=== PATIENT | male | born 1990 | race Caucasian/White ===

== ENCOUNTER 2021-03-10 10:01 | Emergency (ER) | payer OTHER ==
--- NOTE | 2021-03-10 10:53 | XRAY Report ---
PROCEDURE: Foot 3 View RT INDICATIONS: injury TECHNIQUE: 3 views of the foot were acquired. COMPARISON: None FINDINGS: Bones: No fractures or dislocations. No suspicious bony lesions. Soft tissues: No tibiotalar joint effusion. Achilles tendon appears normal. IMPRESSION: No fracture. No osseous lesion. If there are persistent symptoms or continued clinical concern for pa thology, then repeat plain film radiographs (7-10 days) or advanced imaging (CT, MR, bone scan) shoul d be considered for further evaluation. Reviewed by: Jasmin Schuster MD, PhD on 03/10/2021 10:52 AM PDT Approved by: Jasmin Schuster MD, PhD on 03/10/2021 10:52 AM PDT Station ID: [id number]
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
[2021-03-10 12:33] VITALS: BP 130/87
== END 2021-03-10 12:41 | disposition home or self-care (01) ==
LOC: ED 10:01
DX: S30.810A Abrasion of lower back and pelvis, initial encounter (principal); S80.212A Abrasion, left knee, initial encounter; S80.211A Abrasion, right knee, initial encounter; V28.0XXA Motorcycle driver injured in noncollision transport accident in nontraffic accident, initial encounter; Y99.0 Civilian activity done for income or pay; S90.31XA Contusion of right foot, initial encounter
CPT/HCPCS: 99283

== ENCOUNTER 2021-09-26 08:00 | Outpatient (CLI) | payer SELFPAY | END 2021-09-26 23:59 | LOC: LAB 08:00 | PROVIDERS: ATTEND Emergency Medicine | DX: U07.1 COVID-19 (principal) ==

== ENCOUNTER 2023-11-01 07:12 | Outpatient (CLI) | payer OTHER ==
[2023-11-01 14:40] LABS: BASOPHILS # (AUTO) 0.1 10^3/uL (0.0-0.1); EOSINOPHILS # (AUTO) 0.4 10^3/uL (0.0-0.7); EOSINOPHILS % (AUTO) 6.5 %; HCT - HEMATOCRIT 45.4 % (42.0-52.0); HGB - HEMOGLOBIN 14.9 g/dL (14.0-18.0); LYMPHOCYTES # (AUTO) 2.3 10^3/uL (1.5-3.5); LYMPHOCYTES % (AUTO) 37.6 %; MEAN CORPUSCULAR HEMOGLOBIN 28.9 pg (27.0-31.0); MEAN CORPUSCULAR HGB CONC 32.8 g/dL (32.0-36.0); MEAN PLATELET VOLUME 10.7 fL (7.4-11.4); MONOCYTES # (AUTO) 0.6 10^3/uL (0.0-1.0); MONOCYTES % (AUTO) 9.4 %; NEUTROPHILS # (AUTO) 2.8 10^3/uL (1.5-6.6); NEUTROPHILS % (AUTO) 45.3 %; PLT - PLATELET COUNT 277 10^3/uL (130-450); RED BLOOD COUNT 5.16 10^6/uL (4.70-6.10); RED CELL DISTRIBUTION WIDTH 12.8 % (12.0-15.0); WHITE BLOOD COUNT 6.2 x10^3/uL (4.8-10.8)
[2023-11-01 15:09] LABS: ALBUMIN 4.7 g/dL (3.2-5.5); ALBUMIN/GLOBULIN RATIO 1.9 (1.0-2.2); BILIRUBIN,TOTAL 0.7 mg/dL (0.2-1.0); CALCIUM 9.7 mg/dL (8.5-10.3); POTASSIUM 4.2 mmol/L (3.5-4.5); TOTAL PROTEIN 7.2 g/dL (6.4-8.9)
[2023-11-01 15:32] LABS: THYROID STIMULATING HORMONE 5.02 uIU/mL (0.34-5.60)
== END 2023-11-01 07:13 | disposition home or self-care (01) ==
LOC: LAB.S 07:12
PROVIDERS: ATTEND Physician Assistant Medical
DX: N52.9 Male erectile dysfunction, unspecified (principal); Z13.9 Encounter for screening, unspecified; R53.83 Other fatigue
CPT/HCPCS: 36415; 80053; 84403; 84443; 85025

== ENCOUNTER 2023-12-10 08:08 | Day surgery (SDC) | payer OTHER ==
[2023-12-10] MEDS: LACTATED RINGERS 1,000 ML IV ONE ×2 (08:24→09:45)
--- NOTE | 2023-12-10 08:47 | ANESTHESIA ---
Pre-Anesthesia VS, & Labs - Diagnosis sterilization - Procedure bilat vasectomy Vital Signs: Temp Pulse Resp BP Pulse Ox O2 Flow Rate 36.5 C 79 20 127/86 H 99 12/10/23 08:24 12/10/23 08:24 12/10/23 08:24 12/10/23 08:24 12/10/23 08:24 Height: 5 ft 7 in Weight (kg): 85.1 kg Body Mass Index: 29.3 BMI Classification: Overweight - NPO >8 hours - Lab Results Lab results reviewed: Yes Home Medications and Allergies Home Medications: Ambulatory Orders Lactobacillus Combination No.4 [Probiotic] 1 each PO DAILY 11/30/23 Loperamide [Imodium] 2 mg PO ONCE PRN 11/30/23 Multivitamin 1 each PO DAILY 11/30/23 Lactobacillus Combination No.4 [Probiotic] 1 each PO DAILY 11/30/23 Loperamide [Imodium] 2 mg PO ONCE PRN 11/30/23 Multivitamin 1 each PO DAILY 11/30/23 Allergies/Adverse Reactions: Allergies Allergy/AdvReac Type Severity Reaction Status Date / Time No Known Drug Allergies Allergy Verified 12/10/23 08:35 Anes History & Medical History - Anesthetic History Anesthesia Complications: reports: No previous complications Family history of Anesthesia Complications: Denies Family history of Malignant Hyperthermia: Denies - Medical History Cardiovascular: reports: None Pulmonary: reports: None Gastrointestinal: reports: Chronic diarrhea Urinary: reports: None Musculoskeletal: reports: None Endocrine/Autoimmune: reports: None Skin: reports: None Smoking Status: Never smoker Exam General: Alert, Oriented x3, Cooperative Dental: WNL (wire at bottom teeth) Mouth Openin Fingerbreadth Neck Mobility: Normal Mallampati classification: II Thyromental Distance: 4-6 cm Respiratory: Lungs clear, Normal breath sounds, No respiratory distress Cardiovascular: Regular rate Neurological: Normal speech Mental/Cognitive Status: Alert/Oriented X3, Normal for patient Cognitive Status: Within normal limits Plan Anesthesia Type: Total IV Consent for Procedure(s) Verified and Reviewed: Yes Code Status: Attempt Resuscitation ASA classification: 2-Mild systemic disease Is this case an emergency?: No
[2023-12-10] MEDS ORDERED: fentaNYL 100 MCG/2 ML VIAL IVP PRN (09:31)
[2023-12-10] MEDS ORDERED: MORPHINE 2 MG/ML CARPUJECT IVP PRN (09:31)
[2023-12-10] MEDS ORDERED: NALOXONE 0.4 MG/ML VIAL IVP PRN (09:31)
[2023-12-10] MEDS ORDERED: HYDROmorphone 0.5 MG/0.5 ML SYRINGE IVP PRN (09:31)
[2023-12-10] MEDS ORDERED: METOCLOPRAMIDE 10 MG/2 ML VIAL IVP PRN (09:31)
[2023-12-10] MEDS ORDERED: ePHEDrine 50 MG/ML VIAL IVP PRN (09:31)
[2023-12-10] MEDS ORDERED: ONDANSETRON 4 MG/2 ML VIAL IVP PRN (09:31)
[2023-12-10] MEDS ORDERED: ATROPINE ABBOJECT 1 MG/10 ML SYRINGE IVP PRN (09:31)
--- NOTE | 2023-12-10 09:53 | Discharge Plan ---
Discharge Plan Problem Reviewed?: Yes Disposition: 01 Home, Self Care Diet: Regular Activity Restrictions: Additional Comments (as instructed) Shower Restrictions: No Driving Restrictions: No Instruction Topics: Vasectomy No Scalpel No Smoking: If you smoke, Please STOP! Call for help.
--- NOTE | 2023-12-10 09:55 | OPERATIVE REPORT ---
Operative Report - General Procedure Date: 12/10/23 Planned Procedure: Bilateral vasectomy Pre-Op Diagnosis: Elective sterilization Procedure Performed: Bilateral no scalpel vasectomy Post Op Diagnosis: Elective sterilization - Procedure Note Primary Surgeon: Deny Anesthesia Provider: JOSÉ MIGUEL Gallegos Anesthesia Technique: General LMA Estimated Blood Loss (mL): 0 Findings: Routine vasectomy Complications: none - Other Other Information/Narrative: After informed consent was obtained the patient was brought to the OR and laid the supine position. The patient was anesthetized per anesthesia protocols and prepped draped in usual sterile fashion. A formal timeout was performed reconfirming the patient, procedure and laterality. His right vas deferens was grasped and 1% lidocaine used as local in the scrotal skin. Using a sharp dissecting mosquito we made a window into his right hemiscrotum. His vas sheath was grasped using a ring clamp. The sheath was then incised and the vas deferens was grasped and pulled out. It was clamped on both ends and the intervening 1 cm was cauterized away. The ends were then suture-ligated using 3-0 chromic suture. The distal end was buried and a fascial interposition stitch was placed. There was excellent hemostasis. The skin was closed using a 3-0 chromic suture. An identical procedure was performed on the left side. Band-Aids were placed. This concluded the procedure and the patient tolerated the procedure well. He was brought to the PACU without further incident. He will have his semen analysis in 3 months time. All counts were correct
[2023-12-10] MEDS ORDERED: LACTATED RINGERS 1,000 ML IV SCH (10:00)
[2023-12-10 10:07] VITALS: O2SAT 100
[2023-12-10 11:00] VITALS: BP 127/85
--- NOTE | 2023-12-10 11:57 | ANESTHESIA POST OP EVALUATION ---
Anesthesia Post Eval - Post Anesthesia Eval Vitals: Last Vital Signs Temp 36.4 C L 12/10/23 10:45 Pulse 79 12/10/23 10:45 Resp 14 12/10/23 10:45 BP 127/85 H 12/10/23 10:45 Pulse Ox 100 12/10/23 10:45 O2 Flow Rate CV Function Including HR & BP: Stable Pain Control: Satisfactory Nausea & Vomiting: Negative Mental Status: Baseline Respiratory Status: Airway Patent Hydration Status: Satisfactory Anesthesia Complications: None
== END 2023-12-10 08:09 | disposition home or self-care (01) ==
LOC: OR 08:08
PROVIDERS: ATTEND Urology
DX: Z30.2 Encounter for sterilization (principal)